=== PATIENT | female | born 1985 | race African-American/Black ===

== ENCOUNTER 2023-09-07 13:36 | Outpatient (REF) | payer OTHER, SELFPAY ==
[2023-09-07 14:59] LABS: Alanine Aminotransferase 11 U/L (0-31); Albumin Level 3.7 g/dL (3.5-5.0); Alkaline Phosphatase 73 U/L (39-117); Anion Gap 9 (12-20); Aspartate Amino Transferase 15 U/L (5-31); Bilirubin Direct 0.1 mg/dL (0.0-0.5); Bilirubin Total 0.3 mg/dL (0.0-1.0); Blood Urea Nitrogen 8 mg/dL (9-16); Calcium 8.9 mg/dL (8.4-10.2); Carbon Dioxide 27 mmol/L (22-29); Chloride 106 mmol/L (96-108); Cholesterol 195 mg/dL (<200); Estimated Glomerular Filt Rate > 60; Glucose Random 109 mg/dL (60-115); HDL Cholesterol 54 mg/dL (>40); LDL Cholesterol Calculated 129 mg/dL (<100); Potassium 3.7 mmol/L (3.3-5.1); Sodium 138 mmol/L (135-145); Total Protein 7.4 g/dL (6.5-8.0); Triglycerides 63 mg/dL (<150)
[2023-09-07 15:24] LABS: TSH reflex Free T4 1.48 uIU/mL (0.32-4.0)
== END 2023-09-07 13:37 | disposition home or self-care (01) ==
LOC: HO.CHCLDS 13:36
PROVIDERS: Visit Provider Internal Medicine
DX: E66.9 Obesity, unspecified (principal); R73.03 Prediabetes
CPT/HCPCS: 36415; 80048; 80061; 80076; 84443